=== PATIENT | male | born 1970 | race Two or more races ===

== ENCOUNTER 2020-12-18 18:16 | Emergency (ER) | payer MEDICARE, MEDICAID ==
--- NOTE | 2020-12-18 19:56 | EDM.PDOC ---
ED HPI GENERAL MEDICAL PROBLEM - General Chief Complaint: General Stated Complaint: CONGESTED Time Seen by Provider: 12/18/20 18:42 Source of Information: Reports: Patient, RN Notes Reviewed History Limitations: Reports: No Limitations - History of Present Illness INITIAL COMMENTS - FREE TEXT/NARRATIVE: Patient is a 50-year-old male presenting to the emergency department with c omplaints of a 2-week history of sinus and nasal congestion and drainage as well as postnasal drip causing him to cough. He reports that his sense of taste and smell is diminished. He was exposed to his nephew a few weeks back who was Covid positive and is concerned that he could have Covid. Denies any fever, chills, nausea, vomiting or diarrhea. Does not feel short of breath. He has had no chest pain. Headache Pain Score (Numeric/FACES): 8 - Related Data Allergies Allergy/AdvReac Type Severity Reaction Status Date / Time No Known Allergies Allergy Verified 12/18/20 18:40 Home Meds: Home Meds Amoxicillin/Clavulanate K [Augmentin 875-125 MG] 1 tab PO BID 7 Days #14 tab 12/18/20 [Rx] QUEtiapine Fumarate [Seroquel] 200 mg PO DAILY 12/18/20 [History] Past Medical History Psychiatric History: Reports: Bipolar Social & Family History - Tobacco Use Tobacco Use Status *Q: Current Every Day Tobacco User Years of Tobacco use: 39 Packs/Tins Daily: 1 - Caffeine Use Caffeine Use: Reports: Coffee, Energy Drinks - Recreational Drug Use Recreational Drug Use: Yes Recreational Drug Type: Reports: Marijuana/Hashish ED ROS GENERAL - Review of Systems Review Of Systems: Comprehensive ROS is negative, except as noted in HPI. ED EXAM, GENERAL - Physical Exam Exam: See Below Exam Limited By: No Limitations General Appearance: Alert, WD/WN, No Apparent Distress Respiratory/Chest: No Respiratory Distress, Lungs Clear, Normal Breath Sounds, No Accessory Muscle Use, Chest Non-Tender Cardiovascular: Normal Peripheral Pulses, Regular Rate, Rhythm, No Edema, No Gallop, No JVD, No Murmur, No Rub GI/Abdominal: Normal Bowel Sounds, Soft, Non-Tender, No Organomegaly, No Distention, No Abnormal Bruit, No Mass Neurological: Alert, Oriented, CN II-XII Intact, Normal Cognition, Normal Gait, Normal Reflexes, No Motor/Sensory Deficits Psychiatric: Normal Affect, Normal Mood Skin Exam: Warm, Dry, Intact, Normal Color, No Rash Course - Vital Signs Last Recorded V/S: Last Vital Signs Temp 98.4 F 12/18/20 18:37 Pulse 73 12/18/20 18:37 Resp 16 12/18/20 18:37 BP 104/79 12/18/20 18:37 Pulse Ox 96 12/18/20 18:37 - Orders/Labs/Meds Labs: Laboratory Tests 12/18/20 Range/Units 18:39 SARS-CoV-2 RNA ([facility]ACQUI) Negative (NEGATIVE) - Re-Assessments/Exams Free Text/Narrative Re-Assessment/Exam: Patient is a 50-year-old male presenting to the emergency part with complaints of a 2-week history of nasal congestion, sinus pressure, postnasal drip causing a cough. Lung sounds are clear on auscultation. I have ordered Covid testing. 12/18/20 19:51 Covid test was negative. Patient will be treated for bacterial sinusitis given that it has been 2 weeks since the onset of symptoms. Prescriptions for Augmentin have been sent. Discharge instructions as documented. Departure - Departure Time of Disposition: 19:51 Disposition: Home, Self-Care 01 Condition: Good Clinical Impression: Bacterial sinusitis - Discharge Information *PRESCRIPTION DRUG MONITORING PROGRAM REVIEWED*: No *COPY OF PRESCRIPTION DRUG MONITORING REPORT IN PATIENT BALDO: No Prescriptions: Amoxicillin/Clavulanate K [Augmentin 875-125 MG] 1 tab PO BID 7 Days #14 tab Instructions: Sinusitis, Adult, [id number] Referrals: PCP,None [Primary Care Provider] - Forms: ED Department Discharge Additional Instructions: You were seen in the emergency department today for 2-week history of nasal congestion, sinus pressure, postnasal drip with cough. Covid testing was done and found to be negative. Prescription for Augmentin has been sent to your pharmacy for treatment of sinus infection. Take this as prescribed. I would recommend purchasing Flonase nasal spray and use this according to package directions. Return to ER as needed. Sepsis Event Note (ED) - Evaluation Sepsis Screening Result: No Definite Risk - Focused Exam Vital Signs: Vital Signs Temp Pulse Resp BP Pulse Ox 12/18/20 18:37 98.4 F 73 16 104/79 96
== END 2020-12-18 20:03 | disposition home or self-care (01) ==
LOC: JD.ED 18:16
DX: J32.9 Chronic sinusitis, unspecified (principal); B96.89 Other specified bacterial agents as the cause of diseases classified elsewhere; Z72.0 Tobacco use; Z20.822 Contact with and (suspected) exposure to COVID-19
CPT/HCPCS: 99283; U0002